=== PATIENT | male | born 1970 | race Caucasian/White ===

== ENCOUNTER → 2020-06-02 10:33 | Outpatient (CLI) | payer BC, SELFPAY ==
--- NOTE | ~2020-06-02 | XR_ITS ---
EXAMINATION: XR knee RT min 4V DATE: 06/02/2020 10:52 INDICATION: Right knee pain. TECHNIQUE: 4 views of right knee were obtained. COMPARISON: None. FINDINGS: Bone alignment is normal. No fracture. There is mild osteoarthritis of medial and patellofe moral compartments. There is a small knee joint effusion. IMPRESSION: 1. Mild right knee osteoarthritis. 2. Small right knee joint effusion. Reviewed, dictated and finalized at location A.
== END ==
PROVIDERS: Visit Provider Anesthesiology
DX: M25.561 Pain in right knee (principal); M17.11 Unilateral primary osteoarthritis, right knee; M25.461 Effusion, right knee
CPT/HCPCS: 73564

== ENCOUNTER → 2020-07-31 08:55 | Outpatient (CLI) | payer BC, SELFPAY ==
--- NOTE | ~2020-07-31 | MR_ITS ---
EXAMINATION: MR knee RT wo con DATE: 07/31/2020 09:31 INDICATION: Right knee pain. TECHNIQUE: Magnetic resonance imaging (MRI) of the right knee was performed without intravenous contr ast. Sequences included axial PD-weighted FS FSE, coronal PD-weighted FSE and PD-weighted FS FSE, sag ittal PD-weighted FSE, and sagittal T2-weighted FS FSE. COMPARISON: Right knee radiographs 06/02/2020 FINDINGS: Medial compartment: There is a complex tear involving body and posterior horn of medial meniscus. There is shallow partia l-thickness cartilage loss of femoral condyle involving the medial, central, and lateral articular peralta rface with mild subchondral edema-like signal intensity. There is cartilage surface regularity of tib ial condyle. Lateral compartment: Lateral meniscus is normal. There is deep partial thickness cartilage loss of femoral condyle involvi ng the central articular surface. There is cartilage surface irregularity of tibial condyle. Patellofemoral compartment: There is cartilage surface irregularity of patellar median ridge and lateral facet. There is deep par tial thickness cartilage loss of central and medial trochlea and shallow partial-thickness cartilage loss of lateral trochlea. Ligaments and tendons: The anterior and posterior cruciate ligaments are normal. Medial collateral ligament and lateral mary ateral ligament complex are intact. There is mild patellar tendinopathy. Fluid: There is a small knee joint effusion. There is mild superficial infrapatellar bursitis. There is trac e fluid in a Nguyen's cyst. IMPRESSION: 1. Moderate chondrosis of lateral and patellofemoral compartments and mild chondrosis of medial arya rtment. 2. Tear of medial meniscus. 3. Small knee joint effusion. Reviewed, dictated and finalized at location A. IMPRESSION: 1. Moderate chondrosis of lateral and patellofemoral compartments and mild clarisa drosis of medial compartment. 2. Tear of medial meniscus. 3. Small knee joint effusion.
== END ==
PROVIDERS: Visit Provider Anesthesiology
DX: M25.461 Effusion, right knee (principal); S83.241A Other tear of medial meniscus, current injury, right knee, initial encounter; X58.XXXA Exposure to other specified factors, initial encounter
CPT/HCPCS: 73721